=== PATIENT | female | born 1950 | race Caucasian/White ===

== ENCOUNTER 2018-01-09 16:25 | Inpatient (IN) | payer MEDICARE, MEDICAID ==
[~2018-01-09] VITALS: Ht 165.1 cm; Wt 79.5 kg
[~2018-01-09 16:25] MED LIST: ALB0.5UD NEB; ALBU18HF2 INH; AMIT-189 PO; AZIT250T PO; CITA20TA19 PO; CYCL-394 PO; FLO110IN IH; OLME20TA14 PO; OMEP40CA37 PO; OXYB5TAB PO
[2018-01-09] MEDS ORDERED: ipratropium/albuterol 3ml nebule NEB ONE (16:40)
[2018-01-09] MEDS ORDERED: methylPREDNISolone sod succ 125mg/2ml vial IV ONE (16:40)
[2018-01-09] MEDS ORDERED: albuterol 2.5 MG/3 ML nebule CONTNEB PRN (16:45)
[2018-01-09] MEDS ORDERED: magnesium 2GM in 50ml NS 50 ML IV ONE (16:50)
[2018-01-09 16:59] LABS: BASOPHILS # (AUTO) 0.1 X10'3 (0-0.2); BASOPHILS % (AUTO) 0.5 % (0-1); EOSINOPHILS # (AUTO) 0.2 X10'3 (0-0.9); EOSINOPHILS % (AUTO) 2.1 % (0-6); HEMATOCRIT 46.5 % (35.0-45.0); HEMOGLOBIN 15.6 g/dl (12.0-16.0); LYMPHOCYTES # (AUTO) 1.9 X10'3 (1.1-4.8); LYMPHOCYTES % (AUTO) 19.4 % (21-51); MEAN CORPUSCULAR HEMOGLOBIN 30.2 PG (27.0-31.0); MEAN CORPUSCULAR HGB CONC 33.6 % (33.0-36.5); MEAN CORPUSCULAR VOLUME 90.1 FL (78-98); MONOCYTES # (AUTO) 0.6 X10'3 (0-0.9); MONOCYTES % (AUTO) 6.5 % (2-12); NEUTROPHILS # (AUTO) 6.9 X10'3 (1.8-7.7); NEUTROPHILS % (AUTO) 71.5 % (42-75); PLATELET COUNT 217 X10'3 (140-440); RED BLOOD COUNT 5.16 X10'6 (4.20-5.60); RED CELL DISTRIBUTION WIDTH 14.3 % (11.5-14.5); WHITE BLOOD COUNT 9.6 X10'3 (4.5-11.0)
[2018-01-09 17:10] LABS: PARTIAL THROMBOPLASTIN TIME 25 SECONDS (22-32)
[2018-01-09 17:15] LABS: ALANINE AMINOTRANSFERASE 25 U/L (12-78); ALBUMIN 3.6 G/DL (3.4-5.0); ALKALINE PHOSPHATASE 61 IU/L (46-116); ANION GAP 8 (8-16); ASPARTATE AMINO TRANSFERASE 16 U/L (10-37); BILIRUBIN,TOTAL 0.5 MG/DL (0.1-1.0); BLOOD UREA NITROGEN 11 MG/DL (7-18); BUN/CREATININE RATIO 14.3 (6.6-38.0); CALCIUM 8.7 MG/DL (8.5-10.1); CHLORIDE 105 MMOL/L (99-107); CREATININE 0.77 MG/DL (0.40-0.90); GLUCOSE 101 MG/DL (70-104); POTASSIUM 3.8 MMOL/L (3.5-5.1); SODIUM 141 MMOL/L (135-145); TOTAL CARBON DIOXIDE 28.2 MMOL/L (24-32); TOTAL PROTEIN 7.2 G/DL (6.4-8.2); eGFR 75 ML/MIN
[2018-01-09] MEDS ORDERED: LORazepam 1 MG tablet PO ONE (17:50)
[2018-01-09] MEDS ORDERED: albuterol 2.5 MG/3 ML nebule CONTNEB ONE (18:05)
[2018-01-09] MEDS ORDERED: ondansetron/PF 4mg/2ml inj IV PRN (20:35)
[2018-01-09] MEDS ORDERED: potassium Cl 40MEQ/NS 500ml 500 ML IV PRN ×2 (20:35)
[2018-01-09] MEDS ORDERED: HYDROcodone/acetaminophen 5mg/325mg tablet PO PRN (20:35)
[2018-01-09] MEDS ORDERED: magnesium hydroxide 30ml (MOM) UD suspension PO PRN (20:35)
[2018-01-09] MEDS ORDERED: acetaminophen 325mg tablet PO PRN (20:35)
[2018-01-09] MEDS ORDERED: mag hydrox/Alum hydrox/simeth 30ml oral suspension PO PRN (20:35)
[2018-01-09] MEDS ORDERED: potassium Cl 20 mEq SR tablet PO PRN ×2 (20:35)
[2018-01-09] MEDS ORDERED: albuterol 2.5 MG/3 ML nebule NEB PRN (20:40)
[2018-01-09] MEDS: azithromycin 250mg tablet PO SCH (21:00)
[2018-01-09] MEDS ORDERED: budesonide 0.5mg/2ml UD nebule IH SCH (21:12)
[2018-01-09] MEDS: amitryptiline 50mg tablet PO SCH (21:30)
[2018-01-09] MEDS: ipratropium/albuterol 3ml nebule NEB SCH (23:00)
[2018-01-10] MEDS: methylPREDNISolone sod succ 125mg/2ml vial IV SCH ×4 (00:19→23:57)
[2018-01-10] MEDS: ipratropium/albuterol 3ml nebule NEB SCH ×5 (03:00→23:48)
[2018-01-10 06:40] LABS: BASOPHILS % (AUTO) 0 % (0-1); EOSINOPHILS % (AUTO) 0 % (0-6); HEMATOCRIT 46.8 % (35.0-45.0); HEMOGLOBIN 15.6 g/dl (12.0-16.0); LYMPHOCYTES # (AUTO) 0.8 X10'3 (1.1-4.8); LYMPHOCYTES % (AUTO) 10.3 % (21-51); MEAN CORPUSCULAR HEMOGLOBIN 30.6 PG (27.0-31.0); MEAN CORPUSCULAR HGB CONC 33.3 % (33.0-36.5); MEAN CORPUSCULAR VOLUME 91.9 FL (78-98); MEAN PLATELET VOLUME 9.3 FL (7.4-10.4); MONOCYTES % (AUTO) 0.4 % (2-12); NEUTROPHILS # (AUTO) 6.9 X10'3 (1.8-7.7); NEUTROPHILS % (AUTO) 89.3 % (42-75); PLATELET COUNT 204 X10'3 (140-440); RED CELL DISTRIBUTION WIDTH 14.2 % (11.5-14.5); WHITE BLOOD COUNT 7.7 X10'3 (4.5-11.0)
[2018-01-10 07:26] LABS: ALBUMIN 3.2 G/DL (3.4-5.0); ANION GAP 7 (8-16); BLOOD UREA NITROGEN 15 MG/DL (7-18); BUN/CREATININE RATIO 22.1 (6.6-38.0); CALCIUM 8.8 MG/DL (8.5-10.1); CHLORIDE 107 MMOL/L (99-107); CHOL/HDL RATIO 2.9 (0.00-4.99); CHOLESTEROL 173 MG/DL (0-200); CREATININE 0.68 MG/DL (0.40-0.90); GLUCOSE 145 MG/DL (70-104); HDL CHOLESTEROL 60 MG/DL (35-60); LDL CHOLESTEROL 100 MG/DL (50-100); MAGNESIUM 2.4 MG/DL (1.5-2.4); POTASSIUM 4.6 MMOL/L (3.5-5.1); SODIUM 141 MMOL/L (135-145); TOTAL CARBON DIOXIDE 27.1 MMOL/L (24-32); TRIGLYCERIDES 41 MG/DL (20-135); eGFR 86 ML/MIN
[2018-01-10] MEDS: pantoprazole 40mg Tablet.DR PO SCH ×2 (07:53→20:30)
[2018-01-10] MEDS: citalopram 20mg tablet PO SCH (07:53)
[2018-01-10] MEDS: oxybutynin 5mg tablet PO SCH ×2 (07:53→20:29)
[2018-01-10] MEDS: azithromycin 250mg tablet PO SCH (07:53)
[2018-01-10] MEDS: enoxaparin 40mg/0.4ml syringe SQ SCH (07:53)
[2018-01-10] MEDS: CefTRIAXone/D5W-Rocephin 1gm 50 ML IV SCH (07:54)
[2018-01-10] MEDS: K and/or MAG REPLACEMENT MC SCH (08:00)
[2018-01-10] MEDS: budesonide 0.5mg/2ml UD nebule IH SCH ×2 (09:09→20:17)
[2018-01-10 13:49] VITALS: BP 125/86
[2018-01-10 18:00] VITALS: BP 108/70
[2018-01-10] MEDS: amitryptiline 50mg tablet PO SCH (20:30)
[2018-01-10] MEDS: lactobacillus rhamnosus 10,000 MMU CELLS/CAPSULE PO SCH (20:30)
[2018-01-10 22:00] VITALS: BP 116/65
[2018-01-11] MEDS: ipratropium/albuterol 3ml nebule NEB SCH ×6 (02:56→22:47)
[2018-01-11 05:00] VITALS: BP 118/76
[2018-01-11 06:37] LABS: BASOPHILS % (AUTO) 0.2 % (0-1); EOSINOPHILS # (AUTO) 0.3 X10'3 (0-0.9); EOSINOPHILS % (AUTO) 1.7 % (0-6); HEMATOCRIT 44.2 % (35.0-45.0); HEMOGLOBIN 14.7 g/dl (12.0-16.0); LYMPHOCYTES # (AUTO) 0.7 X10'3 (1.1-4.8); LYMPHOCYTES % (AUTO) 4.2 % (21-51); MEAN CORPUSCULAR HEMOGLOBIN 30.6 PG (27.0-31.0); MEAN CORPUSCULAR HGB CONC 33.3 % (33.0-36.5); MEAN CORPUSCULAR VOLUME 91.8 FL (78-98); MEAN PLATELET VOLUME 9.3 FL (7.4-10.4); MONOCYTES # (AUTO) 0.2 X10'3 (0-0.9); NEUTROPHILS # (AUTO) 14.7 X10'3 (1.8-7.7); NEUTROPHILS % (AUTO) 92.9 % (42-75); PLATELET COUNT 199 X10'3 (140-440); RED BLOOD COUNT 4.81 X10'6 (4.20-5.60); WHITE BLOOD COUNT 15.8 X10'3 (4.5-11.0)
[2018-01-11 06:49] LABS: ALBUMIN 3.2 G/DL (3.4-5.0); ANION GAP 8 (8-16); BLOOD UREA NITROGEN 21 MG/DL (7-18); BUN/CREATININE RATIO 22.6 (6.6-38.0); CALCIUM 8.7 MG/DL (8.5-10.1); CHLORIDE 107 MMOL/L (99-107); CREATININE 0.93 MG/DL (0.40-0.90); GLUCOSE 151 MG/DL (70-104); MAGNESIUM 2.1 MG/DL (1.5-2.4); POTASSIUM 4.8 MMOL/L (3.5-5.1); SODIUM 143 MMOL/L (135-145); eGFR 60 ML/MIN
[2018-01-11] MEDS: budesonide 0.5mg/2ml UD nebule IH SCH ×2 (07:49→22:47)
[2018-01-11] MEDS: CefTRIAXone/D5W-Rocephin 1gm 50 ML IV SCH (07:56)
[2018-01-11] MEDS: methylPREDNISolone sod succ 125mg/2ml vial IV SCH ×2 (07:56→20:26)
[2018-01-11] MEDS: lactobacillus rhamnosus 10,000 MMU CELLS/CAPSULE PO SCH ×2 (07:57→20:26)
[2018-01-11] MEDS: enoxaparin 40mg/0.4ml syringe SQ SCH (07:57)
[2018-01-11] MEDS: pantoprazole 40mg Tablet.DR PO SCH ×2 (07:57→20:26)
[2018-01-11] MEDS: azithromycin 250mg tablet PO SCH (07:57)
[2018-01-11] MEDS: citalopram 20mg tablet PO SCH (07:57)
[2018-01-11] MEDS: oxybutynin 5mg tablet PO SCH ×2 (07:58→20:26)
[2018-01-11] MEDS: K and/or MAG REPLACEMENT MC SCH (08:13)
[2018-01-11 10:00] VITALS: BP 101/59
[2018-01-11 18:00] VITALS: BP 102/63
[2018-01-11] MEDS: amitryptiline 50mg tablet PO SCH (20:27)
[2018-01-11 22:00] VITALS: BP 118/71
[2018-01-12] MEDS: ipratropium/albuterol 3ml nebule NEB SCH ×2 (02:40→07:57)
[2018-01-12 05:05] LABS: BASOPHILS % (AUTO) 0.1 % (0-1); EOSINOPHILS # (AUTO) 0.2 X10'3 (0-0.9); HEMOGLOBIN 14.4 g/dl (12.0-16.0); LYMPHOCYTES # (AUTO) 0.8 X10'3 (1.1-4.8); LYMPHOCYTES % (AUTO) 5.3 % (21-51); MEAN CORPUSCULAR HEMOGLOBIN 30.6 PG (27.0-31.0); MEAN CORPUSCULAR HGB CONC 33.6 % (33.0-36.5); MEAN CORPUSCULAR VOLUME 91.3 FL (78-98); MONOCYTES # (AUTO) 0.4 X10'3 (0-0.9); MONOCYTES % (AUTO) 2.5 % (2-12); NEUTROPHILS # (AUTO) 14.1 X10'3 (1.8-7.7); NEUTROPHILS % (AUTO) 91.1 % (42-75); PLATELET COUNT 193 X10'3 (140-440); RED BLOOD COUNT 4.71 X10'6 (4.20-5.60); RED CELL DISTRIBUTION WIDTH 14.4 % (11.5-14.5); WHITE BLOOD COUNT 15.5 X10'3 (4.5-11.0)
[2018-01-12 05:40] LABS: ALBUMIN 3.2 G/DL (3.4-5.0); ANION GAP 8 (8-16); BLOOD UREA NITROGEN 22 MG/DL (7-18); CALCIUM 8.9 MG/DL (8.5-10.1); CHLORIDE 106 MMOL/L (99-107); CREATININE 0.88 MG/DL (0.40-0.90); GLUCOSE 147 MG/DL (70-104); POTASSIUM 4.7 MMOL/L (3.5-5.1); SODIUM 143 MMOL/L (135-145); TOTAL CARBON DIOXIDE 28.9 MMOL/L (24-32); eGFR 64 ML/MIN
[2018-01-12 06:00] VITALS: BP 106/68
[2018-01-12] MEDS: lactobacillus rhamnosus 10,000 MMU CELLS/CAPSULE PO SCH (07:31)
[2018-01-12] MEDS: azithromycin 250mg tablet PO SCH (07:31)
[2018-01-12] MEDS: pantoprazole 40mg Tablet.DR PO SCH (07:31)
[2018-01-12] MEDS: oxybutynin 5mg tablet PO SCH (07:32)
[2018-01-12] MEDS: methylPREDNISolone sod succ 125mg/2ml vial IV SCH (07:32)
[2018-01-12] MEDS: citalopram 20mg tablet PO SCH (07:32)
[2018-01-12] MEDS: CefTRIAXone/D5W-Rocephin 1gm 50 ML IV SCH (07:33)
[2018-01-12] MEDS: enoxaparin 40mg/0.4ml syringe SQ SCH (07:33)
[2018-01-12] MEDS ORDERED: PRED20TA PO (07:41)
[2018-01-12] MEDS: K and/or MAG REPLACEMENT MC SCH (07:45)
[2018-01-12] MEDS: budesonide 0.5mg/2ml UD nebule IH SCH (07:58)
[2018-01-12] MEDS ORDERED: LEVO500T89 PO (08:17)
== END 2018-01-12 09:59 | disposition home or self-care (01) | DRG 189 ==
LOC: ER 16:25 → ED HOLD 20:35 → EDBEDREQ 21:23 → ORTHO 4S 01-10 13:15
PROVIDERS: ADMIT Family Medicine; ATTEND Internal Medicine
DX: J96.21 Acute and chronic respiratory failure with hypoxia (principal); J44.1 Chronic obstructive pulmonary disease with (acute) exacerbation; D72.829 Elevated white blood cell count, unspecified; K21.9 Gastro-esophageal reflux disease without esophagitis; I10 Essential (primary) hypertension; F32.9 Major depressive disorder, single episode, unspecified; F41.9 Anxiety disorder, unspecified; G89.29 Other chronic pain; M54.9 Dorsalgia, unspecified; T38.0X5A Adverse effect of glucocorticoids and synthetic analogues, initial encounter; F17.210 Nicotine dependence, cigarettes, uncomplicated; Z90.49 Acquired absence of other specified parts of digestive tract; Z98.51 Tubal ligation status; Z79.899 Other long term (current) drug therapy; Z79.01 Long term (current) use of anticoagulants; Z88.6 Allergy status to analgesic agent; Z88.1 Allergy status to other antibiotic agents; Z88.8 Allergy status to other drugs, medicaments and biological substances; Z87.442 Personal history of urinary calculi; Z83.3 Family history of diabetes mellitus; Y92.89 Other specified places as the place of occurrence of the external cause
CPT/HCPCS: 36415; 71045; 80048; 80053; 80061; 83036; 83735; 83880; 84484; 85025; 85610; 85730; 87070; 87502; 87503; 93005; 94640; 94760; 96365; 96375; 99285; J0696; J1650; J2930; J3475; J7626

== ENCOUNTER 2018-11-22 11:49 | Inpatient (IN) | payer MEDICARE, MEDICAID | END 2018-11-25 14:50 | disposition home or self-care (01) | LOC: ER 11:49 → ED HOLD 16:13 → PCU 3S 19:19 | DX: A41.9 Sepsis, unspecified organism (principal); J18.9 Pneumonia, unspecified organism; J96.21 Acute and chronic respiratory failure with hypoxia; J44.1 Chronic obstructive pulmonary disease with (acute) exacerbation ==

== ENCOUNTER 2019-01-16 23:31 | Inpatient (IN) | payer MEDICARE, MEDICAID ==
[~2019-01-16] VITALS: Ht 165.1 cm; Wt 80.0 kg
[~2019-01-16 23:31] MED LIST changes: -AZIT250T PO; -CYCL-394 PO; -FLO110IN IH; +FURO-150 PO; +GUAI600T45 PO; -OLME20TA14 PO; +OMEP20CA10 PO; -OMEP40CA37 PO
[2019-01-16] MEDS ORDERED: methylPREDNISolone sod succ 125mg/2ml vial IV ONE (23:35)
[2019-01-16] MEDS ORDERED: magnesium 2GM in 50ml NS 50 ML IV ONE (23:35)
[2019-01-16] MEDS ORDERED: albuterol 2.5 MG/3 ML nebule CONTNEB PRN (23:40)
[2019-01-16] MEDS ORDERED: azithromycin/NS 500mg/250ml 250 ML IV ONE (23:45)
[2019-01-16] MEDS ORDERED: CefTRIAXone/D5W-Rocephin 1gm 50 ML IV ONE (23:45)
[2019-01-16 23:51] LABS: ABG BASE EXCESS 5.1 mmol/L (-2.0-3.0); ABG OXYGEN SATURATION 98.6 % (95-98); ABG PCO2 (T) 58.7 mmHg (32.0-45.0); ABG PH (T) 7.357 (7.350-7.450); ABG PO2 (T) 153.3 mmHg (83-108); ALLEN'S TEST Positive; FCOHb 0.7 % (0.5-1.5); FMetHb 0.1 % (0.3-1.12); FO2Hb 97.8 % (94-100); PATIENT TEMPERATURE 37.6; RESPIRATORY RATE 16 b/min; RESPIRATORY RATE (OBSERVED) 36 b/min; TOTAL HEMOGLOBIN 13.4 G/dl (12.0-16.0)
[2019-01-17] LABS: BASOPHILS # (AUTO) 0.1 X10'3 (0-0.2); BASOPHILS % (AUTO) 0.5 % (0-1); EOSINOPHILS # (AUTO) 0.2 X10'3 (0-0.9); EOSINOPHILS % (AUTO) 1.1 % (0-6); HEMOGLOBIN 12.7 g/dl (12.0-16.0); LYMPHOCYTES # (AUTO) 1.1 X10'3 (1.1-4.8); LYMPHOCYTES % (AUTO) 6.7 % (21-51); MEAN CORPUSCULAR HEMOGLOBIN 29.9 PG (27.0-31.0); MEAN CORPUSCULAR HGB CONC 32.6 g/dL (33.0-36.5); MEAN CORPUSCULAR VOLUME 91.9 FL (78-98); MEAN PLATELET VOLUME 8.6 FL (7.4-10.4); MONOCYTES % (AUTO) 6.1 % (2-12); NEUTROPHILS # (AUTO) 14.5 X10'3 (1.8-7.7); NEUTROPHILS % (AUTO) 85.6 % (42-75); PLATELET COUNT 323 X10'3 (140-440); RED BLOOD COUNT 4.24 X10'6 (4.20-5.60); RED CELL DISTRIBUTION WIDTH 14.8 % (11.5-14.5); WHITE BLOOD COUNT 16.9 X10'3 (4.5-11.0)
[2019-01-17 00:13] LABS: ALANINE AMINOTRANSFERASE 24 U/L (12-78); ALBUMIN 2.4 G/DL (3.4-5.0); ALBUMIN/GLOBULIN RATIO 0.6 (1.1-1.5); ALKALINE PHOSPHATASE 65 IU/L (46-116); ANION GAP 3 (8-16); ASPARTATE AMINO TRANSFERASE 14 U/L (10-37); BILIRUBIN,TOTAL 0.3 MG/DL (0.1-1.0); BLOOD UREA NITROGEN 10 MG/DL (7-18); BUN/CREATININE RATIO 13.2 (6.6-38.0); CALCIUM 8.8 MG/DL (8.5-10.1); CHLORIDE 102 MMOL/L (99-107); CREATININE 0.76 MG/DL (0.40-0.90); GLUCOSE 142 MG/DL (70-104); POTASSIUM 3.5 MMOL/L (3.5-5.1); SODIUM 140 MMOL/L (135-145); TOTAL CARBON DIOXIDE 35.1 MMOL/L (24-32); TOTAL PROTEIN 6.6 G/DL (6.4-8.2); eGFR 76 ML/MIN
[2019-01-17 00:21] LABS: TROPONIN I < 0.04 NG/ML (0.0-0.05)
[2019-01-17 00:22] LABS: LARGE PLATELETS FEW; PLATELET ESTIMATE NORMAL; TOTAL CELLS COUNTED 100
[2019-01-17 00:53] LABS: INR 1.1 INR; PARTIAL THROMBOPLASTIN TIME 27 SECONDS (22-32); PROTHROMBIN TIME 10.7 SECONDS (9.0-12.0)
--- NOTE | 2019-01-17 00:55 | NUR ---
DAUGHTER CALLED WITH [facility] - MED REC COMPLETED ON COMPUTER
--- NOTE | 2019-01-17 01:17 | NUR ---
pt markedly improved. She is requesting to have bipap removed. states it is hot and feels like it is suffocating her. turned the warmer off and told pt that should help. MD at bedside and stated he would like a repeat ABG before doing a trial off the bipap. pt agreeable to plan of care.
[2019-01-17 03:01] LABS: ABG BASE EXCESS 8.6 mmol/L (-2.0-3.0); ABG HCO3 36.1 mmol/L (22.0-26.0); ABG OXYGEN SATURATION 96.1 % (95-98); ABG PCO2 (T) 65.3 mmHg (32.0-45.0); ABG PH (T) 7.363 (7.350-7.450); ABG PO2 (T) 88.2 mmHg (83-108); ALLEN'S TEST Positive; FCOHb 0.8 % (0.5-1.5); FMetHb 0.1 % (0.3-1.12); FO2Hb 95.2 % (94-100); MINUTE VOLUME 16 L/min; PATIENT TEMPERATURE 37.6; RESPIRATORY RATE 16 b/min; RESPIRATORY RATE (OBSERVED) 32 b/min; TIDAL VOLUME 546 mL; TOTAL HEMOGLOBIN 13.5 G/dl (12.0-16.0)
[2019-01-17] MEDS ORDERED: piperacillin/tazo 3.375gm/50ml 50 ML IV SCH (03:50)
[2019-01-17] MEDS ORDERED: SODIUM CHLORIDE IV ONE (03:55)
[2019-01-17] MEDS ORDERED: VANCOMYCIN IV ONE (03:55)
--- NOTE | 2019-01-17 04:18 | NUR ---
PT REQUESTING UPDATE - SHE IS ADVISED OF PLAN OF CARE AND IN AGREEMENT WITH STAYING OVER NIGHT/BEING ADMITTED
[2019-01-17 04:51] LABS: ABG BASE EXCESS 8.8 mmol/L (-2.0-3.0); ABG HCO3 36.2 mmol/L (22.0-26.0); ABG PCO2 (T) 65.3 mmHg (32.0-45.0); ABG PH (T) 7.366 (7.350-7.450); ABG PO2 (T) 97.4 mmHg (83-108); ALLEN'S TEST Positive; FMetHb 0.2 % (0.3-1.12); FO2Hb 95.8 % (94-100); MINUTE VOLUME 18 L/min; PATIENT TEMPERATURE 37.9; RESPIRATORY RATE 20 b/min; RESPIRATORY RATE (OBSERVED) 26 b/min; TIDAL VOLUME 609 mL; TOTAL HEMOGLOBIN 13.5 G/dl (12.0-16.0)
--- NOTE | 2019-01-17 05:15 | NUR ---
PT HAD ANOTHER ABG WHICH REVEALED NO SIGNIFICANT CHANGE FROM PREVIOUS - PER MD AND RT PT HAS BEEN TAKEN OFF BIPAP - SHE IS CURRENTLY ON NC @3LPM
--- NOTE | 2019-01-17 05:59 | NUR ---
pt reports she is having trouble breathing again. her lungs are diminished, coarse and expiratory wheezes are present. she is placed back on bipap and MD notified. He is going to order another breathing treatment.
[2019-01-17] MEDS ORDERED: ipratropium/albuterol 3ml nebule NEB ONE (06:00)
[2019-01-17] MEDS ORDERED: magnesium 4gm in 100ml NS 100 ML IV PRN (08:20)
[2019-01-17] MEDS ORDERED: magnesium 2GM in 50ml NS 50 ML IV PRN (08:20)
[2019-01-17] MEDS ORDERED: potassium Cl 40MEQ/NS 500ml 500 ML IV PRN ×2 (08:20)
[2019-01-17] MEDS ORDERED: potassium Cl 20 mEq SR tablet PO PRN ×2 (08:20)
[2019-01-17] MEDS ORDERED: magnesium Cl slow-release 64mg tablet PO PRN (08:20)
[2019-01-17] MEDS ORDERED: ipratropium/albuterol 3ml nebule NEB PRN (08:20)
[2019-01-17] MEDS: ipratropium/albuterol 3ml nebule NEB SCH ×3 (09:00→21:23)
--- NOTE | 2019-01-17 10:38 | NUR ---
Spoke with hospitalist regarding pt's status. Pt condition improving, O2 sat 96% on BiPAP at 30% FiO2; states she is feeling better with improving SOB. Dr. Castillo requests trial of BiPAP with NC 3L. No ABG at this time; only wants additional ABG if pt condition worsens.
--- NOTE | 2019-01-17 10:40 | NUR ---
BiPAP removed, will continue to reassess patient.
[2019-01-17] MEDS: piperacillin/tazo 3.375gm/50ml 50 ML IV SCH ×2 (12:26→20:16)
--- NOTE | 2019-01-17 13:28 | NUR ---
patient eating lunch,no reported discomfort.
[2019-01-17 15:00] VITALS: BP 125/70
[2019-01-17 15:15] VITALS: BP 133/81
[2019-01-17 18:18] VITALS: BP 120/66
--- NOTE | 2019-01-17 18:29 | NUR ---
Problems reprioritized. Patient report given, questions answered & plan of care reviewed with SELENE Muniz.
--- NOTE | 2019-01-17 18:29 | NUR ---
Patient in room PCU 3012. I have received report from Deya MORTON and had the opportunity to ask questions and assume patient care. no iv, IV infiltrated. 3L NC, call light in reach, skin check done, no signs of distress. freq used belongings within reach. will continue to monitor
[2019-01-17] MEDS: citalopram 20mg tablet PO SCH (20:15)
[2019-01-17] MEDS: oxybutynin 5mg tablet PO SCH (20:16)
[2019-01-17] MEDS: pantoprazole 40mg Tablet.DR PO SCH (20:16)
[2019-01-17] MEDS: lactobacillus rhamnosus 10,000 MMU CELLS/CAPSULE PO SCH (20:16)
[2019-01-17 22:00] VITALS: BP 124/67
[2019-01-18 02:00] VITALS: BP 116/51
[2019-01-18] MEDS: ipratropium/albuterol 3ml nebule NEB SCH ×4 (02:29→20:16)
[2019-01-18] MEDS: piperacillin/tazo 3.375gm/50ml 50 ML IV SCH ×3 (04:07→20:22)
[2019-01-18 05:26] LABS: ALBUMIN 2.1 G/DL (3.4-5.0); ANION GAP 4 (8-16); BLOOD UREA NITROGEN 19 MG/DL (7-18); BUN/CREATININE RATIO 25.3 (6.6-38.0); CALCIUM 8.7 MG/DL (8.5-10.1); CHLORIDE 105 MMOL/L (99-107); CREATININE 0.75 MG/DL (0.40-0.90); GLUCOSE 100 MG/DL (70-104); MAGNESIUM 2.3 MG/DL (1.5-2.4); POTASSIUM 3.7 MMOL/L (3.5-5.1); SODIUM 144 MMOL/L (135-145); TOTAL CARBON DIOXIDE 35.5 MMOL/L (24-32); eGFR 77 ML/MIN
[2019-01-18 05:39] LABS: BASOPHILS % (AUTO) 0.3 % (0-1); EOSINOPHILS # (AUTO) 0.1 X10'3 (0-0.9); EOSINOPHILS % (AUTO) 0.4 % (0-6); HEMATOCRIT 36.4 % (35.0-45.0); HEMOGLOBIN 11.7 g/dl (12.0-16.0); LYMPHOCYTES # (AUTO) 1.8 X10'3 (1.1-4.8); LYMPHOCYTES % (AUTO) 12.4 % (21-51); MEAN CORPUSCULAR HEMOGLOBIN 29.6 PG (27.0-31.0); MEAN CORPUSCULAR HGB CONC 32.3 g/dL (33.0-36.5); MEAN CORPUSCULAR VOLUME 91.7 FL (78-98); MEAN PLATELET VOLUME 8.6 FL (7.4-10.4); MONOCYTES # (AUTO) 1.4 X10'3 (0-0.9); MONOCYTES % (AUTO) 9.1 % (2-12); NEUTROPHILS # (AUTO) 11.6 X10'3 (1.8-7.7); NEUTROPHILS % (AUTO) 77.8 % (42-75); PLATELET COUNT 317 X10'3 (140-440); RED BLOOD COUNT 3.97 X10'6 (4.20-5.60); RED CELL DISTRIBUTION WIDTH 15.2 % (11.5-14.5); WHITE BLOOD COUNT 14.9 X10'3 (4.5-11.0)
[2019-01-18 06:00] VITALS: BP 117/62
--- NOTE | 2019-01-18 06:25 | NUR ---
Patient in room PCU 3012. I have received report from SELENE Muniz and had the opportunity to ask questions and assume patient care. Pt resting, no distress, states no needs, bed is low/locked/SRx2, call light in reach.
--- NOTE | 2019-01-18 06:29 | NUR ---
Problems reprioritized. Patient report given, questions answered & plan of care reviewed with Deya MORTON. no signs of distress. iv intact, freq used belongings within reach, call light in reach.
[2019-01-18] MEDS: K and/or MAG REPLACEMENT MC SCH (06:46)
[2019-01-18] MEDS: CefTRIAXone/D5W-Rocephin 1gm 50 ML IV SCH ×2 (08:00→10:15)
[2019-01-18] MEDS: azithromycin/NS 500mg/250ml 250 ML IV SCH ×3 (08:00→10:15)
[2019-01-18] MEDS: pantoprazole 40mg Tablet.DR PO SCH ×2 (08:04→20:22)
[2019-01-18] MEDS: enoxaparin 40mg/0.4ml syringe SUBCUT SCH (08:04)
[2019-01-18] MEDS: oxybutynin 5mg tablet PO SCH ×2 (08:04→20:22)
[2019-01-18] MEDS: lactobacillus rhamnosus 10,000 MMU CELLS/CAPSULE PO SCH ×2 (08:05→20:22)
[2019-01-18 11:00] VITALS: BP 126/69
--- NOTE | 2019-01-18 11:01 | NUR ---
PAGER ID: [phone] MESSAGE: [id number] Nikia Gee C/o nausea, no nausea meds ordered. Please advise. SELENE Falk 1965
[2019-01-18] MEDS ORDERED: ondansetron/PF 4mg/2ml inj IV PRN (11:10)
[2019-01-18] MEDS: nystatin 15 GM powder TP SCH ×2 (13:00→20:22)
[2019-01-18 15:00] VITALS: BP 112/75
--- NOTE | 2019-01-18 17:01 | NUR ---
To patient's room to enquire about pain level, patient sleeping on right side, RR WNL, no signs of distress. Will continue to monitor.
--- NOTE | 2019-01-18 17:33 | NUR ---
Malnutrition consult: Pt has no wt loss hx past year prior admit, no significant weakness, edema, and PO 75% avg regular diet meeting needs. Does not qualify for malnutrition at this time. Addendum: 01/18/19 at [address] Amended: Links added.
[2019-01-18 18:00] VITALS: BP 107/71
--- NOTE | 2019-01-18 18:05 | NUR ---
Problems reprioritized. Patient report given, questions answered & plan of care reviewed with SELENE Mccall.
--- NOTE | 2019-01-18 18:34 | NUR ---
PATIENT REPORT RECEIVED FROM YNES MORTON.
[2019-01-18] MEDS: acetaminophen 325mg tablet PO PRN (19:47)
[2019-01-18] MEDS: citalopram 20mg tablet PO SCH (20:22)
[2019-01-18 22:00] VITALS: BP 108/63
[2019-01-19 02:00] VITALS: BP 111/71
[2019-01-19] MEDS: ipratropium/albuterol 3ml nebule NEB SCH ×2 (02:52→09:58)
[2019-01-19] MEDS: acetaminophen 325mg tablet PO PRN (03:09)
[2019-01-19] MEDS: piperacillin/tazo 3.375gm/50ml 50 ML IV SCH (04:40)
[2019-01-19 05:41] LABS: BASOPHILS # (AUTO) 0.1 X10'3 (0-0.2); BASOPHILS % (AUTO) 1.2 % (0-1); EOSINOPHILS # (AUTO) 0.2 X10'3 (0-0.9); EOSINOPHILS % (AUTO) 2.8 % (0-6); HEMATOCRIT 34.9 % (35.0-45.0); HEMOGLOBIN 11.2 g/dl (12.0-16.0); LYMPHOCYTES # (AUTO) 1.9 X10'3 (1.1-4.8); LYMPHOCYTES % (AUTO) 24.6 % (21-51); MEAN CORPUSCULAR HEMOGLOBIN 29.7 PG (27.0-31.0); MEAN CORPUSCULAR VOLUME 92.8 FL (78-98); MEAN PLATELET VOLUME 8.6 FL (7.4-10.4); MONOCYTES # (AUTO) 0.9 X10'3 (0-0.9); MONOCYTES % (AUTO) 11.3 % (2-12); NEUTROPHILS # (AUTO) 4.7 X10'3 (1.8-7.7); NEUTROPHILS % (AUTO) 60.1 % (42-75); PLATELET COUNT 294 X10'3 (140-440); RED BLOOD COUNT 3.77 X10'6 (4.20-5.60); WHITE BLOOD COUNT 7.8 X10'3 (4.5-11.0)
[2019-01-19 05:48] LABS: ALBUMIN 2.1 G/DL (3.4-5.0); ANION GAP 4 (8-16); BLOOD UREA NITROGEN 16 MG/DL (7-18); BUN/CREATININE RATIO 22.5 (6.6-38.0); CALCIUM 8.3 MG/DL (8.5-10.1); CHLORIDE 105 MMOL/L (99-107); CREATININE 0.71 MG/DL (0.40-0.90); GLUCOSE 92 MG/DL (70-104); MAGNESIUM 2.2 MG/DL (1.5-2.4); POTASSIUM 3.8 MMOL/L (3.5-5.1); SODIUM 146 MMOL/L (135-145); eGFR 82 ML/MIN
--- NOTE | 2019-01-19 06:35 | NUR ---
Patient in room PCU 3012. I have received report from SELENE Mccall and had the opportunity to ask questions and assume patient care.
--- NOTE | 2019-01-19 06:35 | NUR ---
PATIENT REPORT GIVEN TO YOLIE MORTON.
[2019-01-19 07:00] VITALS: BP 105/62
[2019-01-19] MEDS: lactobacillus rhamnosus 10,000 MMU CELLS/CAPSULE PO SCH (07:24)
[2019-01-19] MEDS: oxybutynin 5mg tablet PO SCH (07:24)
[2019-01-19] MEDS: pantoprazole 40mg Tablet.DR PO SCH (07:24)
[2019-01-19] MEDS: enoxaparin 40mg/0.4ml syringe SUBCUT SCH (07:25)
[2019-01-19] MEDS: nystatin 15 GM powder TP SCH (07:26)
[2019-01-19] MEDS: K and/or MAG REPLACEMENT MC SCH (08:00)
[2019-01-19] MEDS: CefTRIAXone/D5W-Rocephin 1gm 50 ML IV SCH (08:36)
--- NOTE | 2019-01-19 08:54 | NUR ---
Paged Dr. Castillo re pt's request for MOM. PAGER ID: [phone] MESSAGE: Pt Petra Gee in [id number] requesting MOM. Last BM 01/15. Thanks! Valerie MORTON [phone]
[2019-01-19] MEDS ORDERED: magnesium hydroxide 30ml (MOM) UD suspension PO ONE (09:00)
[2019-01-19] MEDS ORDERED: AMOX-422 PO (10:03)
[2019-01-19] MEDS ORDERED: PRED20TA PO (10:08)
[2019-01-19] MEDS: azithromycin/NS 500mg/250ml 250 ML IV SCH (10:15)
[2019-01-19 11:00] VITALS: BP 96/56
--- NOTE | 2019-01-19 12:50 | NUR ---
Discharge information, including medications, S&S worsening condition, f/u appointments reviewed with pt. Pt had the opportunity to ask questions. IV removed, cannula intact. All pt belongings gathered up and sent with pt. ID bands removed. 2 new prescriptions called in to [facility] in [place]. Pt wheeled down to lobby and ambulated independently in to private vehicle without difficulty.
== END 2019-01-19 12:50 | disposition home or self-care (01) | DRG 189 ==
LOC: ER 23:31 → ED HOLD 01-17 15:05 → PCU 3S 01-17 15:27
PROVIDERS: ADMIT Internal Medicine; ATTEND Internal Medicine
DX: J96.20 Acute and chronic respiratory failure, unspecified whether with hypoxia or hypercapnia (principal); J44.1 Chronic obstructive pulmonary disease with (acute) exacerbation
CPT/HCPCS: 36415; 36600; 71045; 80048; 80053; 82803; 83605; 83735; 83880; 84484; 85018; 85025; 85610; 85730; 87040; 87070; 93005; 94640; 94660; 94760; 96365; 96368; 96375; 99285; G0378; J0456; J0696; J1650; J2405; J2543; J2930; J3370; J3475

== ENCOUNTER 2019-08-17 01:50 | Inpatient (IN) | payer MEDICARE, MEDICAID ==
[~2019-08-17] VITALS: Ht 167.6 cm; Wt 84.5 kg
[~2019-08-17 01:50] MED LIST changes: -AMIT-189 PO; -FURO-150 PO; -GUAI600T45 PO; -OMEP20CA10 PO; +OMEP20CA11 PO; -OXYB5TAB PO; +OXYB5TAB4 PO; +PRED20TA PO
[2019-08-17] MEDS ORDERED: magnesium 2GM in 50ml NS 50 ML IV ONE (01:55)
[2019-08-17] MEDS ORDERED: ipratropium/albuterol 3ml nebule NEB ONE (01:55)
[2019-08-17] MEDS ORDERED: methylPREDNISolone sod succ 125mg/2ml vial IV ONE (01:55)
[2019-08-17] MEDS ORDERED: ipratropium 0.5 MG/2.5ML nebule IH ONE (03:35)
[2019-08-17] MEDS ORDERED: albuterol 2.5 MG/3 ML nebule CONTNEB PRN (03:35)
[2019-08-17 03:36] LABS: BASOPHILS # (AUTO) 0.1 X10'3 (0-0.2); BASOPHILS % (AUTO) 0.5 % (0-1); EOSINOPHILS # (AUTO) 0.1 X10'3 (0-0.9); LYMPHOCYTES # (AUTO) 1.5 X10'3 (1.1-4.8); MEAN CORPUSCULAR VOLUME 89.9 FL (78-98); MONOCYTES # (AUTO) 1.1 X10'3 (0-0.9); PLATELET COUNT 213 X10'3 (140-440)
[2019-08-17 03:37] LABS: EOSINOPHILS % (AUTO) 0.8 % (0-6); HEMATOCRIT 43.2 % (35.0-45.0); HEMOGLOBIN 14.2 g/dl (12.0-16.0); LYMPHOCYTES % (AUTO) 10.7 % (21-51); MEAN CORPUSCULAR HEMOGLOBIN 29.5 PG (27.0-31.0); MEAN CORPUSCULAR HGB CONC 32.9 g/dL (33.0-36.5); MEAN PLATELET VOLUME 9.5 FL (7.4-10.4); MONOCYTES % (AUTO) 7.8 % (2-12); NEUTROPHILS # (AUTO) 11.1 X10'3 (1.8-7.7); NEUTROPHILS % (AUTO) 80.2 % (42-75); RED BLOOD COUNT 4.81 X10'6 (4.20-5.60); RED CELL DISTRIBUTION WIDTH 14.8 % (11.5-14.5); WHITE BLOOD COUNT 13.9 X10'3 (4.5-11.0)
[2019-08-17] MEDS ORDERED: albuterol 2.5 MG/3 ML nebule ONE (03:40)
[2019-08-17 03:41] LABS: ALANINE AMINOTRANSFERASE 18 U/L (12-78); ALBUMIN 3.4 G/DL (3.4-5.0); ALBUMIN/GLOBULIN RATIO 0.8 (1.1-1.5); ALKALINE PHOSPHATASE 86 IU/L (46-116); ANION GAP 8 (8-16); ASPARTATE AMINO TRANSFERASE 19 U/L (10-37); BILIRUBIN,TOTAL 0.7 MG/DL (0.1-1.0); BLOOD UREA NITROGEN 13 MG/DL (7-18); BUN/CREATININE RATIO 16.5 (6.6-38.0); CALCIUM 8.9 MG/DL (8.5-10.1); CHLORIDE 103 MMOL/L (99-107); CREATININE 0.79 MG/DL (0.40-0.90); GLUCOSE 143 MG/DL (70-104); SODIUM 139 MMOL/L (135-145); TOTAL CARBON DIOXIDE 28.3 MMOL/L (24-32); TOTAL PROTEIN 7.8 G/DL (6.4-8.2); eGFR 72 ML/MIN
[2019-08-17 03:43] LABS: POTASSIUM 4.3 MMOL/L (3.5-5.1)
[2019-08-17] MEDS ORDERED: azithromycin/NS 500mg/250ml 250 ML IV ONE (03:45)
[2019-08-17] MEDS ORDERED: CefTRIAXone 2gm/D5W 50ml 50 ML IV ONE (03:45)
[2019-08-17 04:01] LABS: ABG BASE EXCESS 3.1 mmol/L (-2.0-3.0); ABG HCO3 29.6 mmol/L (22.0-26.0); ABG OXYGEN SATURATION 99.1 % (95-98); ABG PCO2 (T) 52.9 mmHg (35.0-45.0); ABG PH (T) 7.366 (7.350-7.450); ABG PO2 (T) 190.5 mmHg (83-108); ALLEN'S TEST Positive; FCOHb 0.8 % (0.5-1.5); FLOW 8 L/min; FMetHb 0.3 % (0.3-1.12); RESPIRATORY RATE (OBSERVED) 24 b/min; TOTAL HEMOGLOBIN 14.4 G/dl (12.0-16.0)
[2019-08-17] MEDS ORDERED: acetaminophen 325mg tablet PO ONE (04:05)
[2019-08-17] MEDS ORDERED: ondansetron/PF 4mg/2ml inj IV PRN (05:55)
[2019-08-17] MEDS ORDERED: magnesium 4gm in 100ml NS 100 ML IV PRN (05:55)
[2019-08-17] MEDS ORDERED: acetaminophen 325mg tablet PO PRN (05:55)
[2019-08-17] MEDS ORDERED: magnesium 2GM in 50ml NS 50 ML IV PRN (05:55)
[2019-08-17] MEDS ORDERED: ipratropium/albuterol 3ml nebule NEB PRN (05:55)
[2019-08-17] MEDS ORDERED: potassium CL 10mEq/100ml bag 100 ML IV PRN ×2 (05:55)
[2019-08-17] MEDS ORDERED: potassium Cl 20 mEq SR tablet PO PRN ×2 (05:55)
[2019-08-17] MEDS ORDERED: magnesium Cl slow-release 64mg tablet PO PRN (05:55)
[2019-08-17] MEDS ORDERED: CITA40TA17 PO (06:30)
[2019-08-17] MEDS ORDERED: TIOT4MIS2 INH (06:30)
[2019-08-17] MEDS ORDERED: AMIT-189 PO (06:32)
--- NOTE | 2019-08-17 06:56 | NUR ---
Paged Dr. Castillo regarding need to address med rec.
[2019-08-17] MEDS ORDERED: azithromycin/NS 500mg/250ml 250 ML IV SCH (08:00)
[2019-08-17] MEDS ORDERED: CefTRIAXone/D5W-Rocephin 1gm 50 ML IV SCH (08:00)
[2019-08-17] MEDS: K and/or MAG REPLACEMENT MC SCH (08:00)
[2019-08-17] MEDS ORDERED: methylPREDNISolone sod succ/PF 40mg inj. IV SCH (08:00)
--- NOTE | 2019-08-17 08:55 | NUR ---
RECEIVED REPORT FROM SELENE BRYAN. AWAITING PATIENT ARRIVAL TO ROOM 357B TO ASSUME CARE.
--- NOTE | 2019-08-17 09:17 | NUR ---
RECEIVED PATIENT TO ROOM 357B [facility]IA [facility] ACCOMPANIED BY [facility] STAFF. PATIENT ALERT AND ORIENTED. PATIENT ABLE TO TRANSFER TO BED FROM [facility] HAS SOB WITH EXERTION. ORIENTED PATIENT TO ROOM AND CALL LIGHT. CALL LIGHT PLACED WITHIN PATIENT'S REACH. BED IS LOW AND LOCKED.
[2019-08-17 09:20] VITALS: BP 145/80
[2019-08-17] MEDS ORDERED: FLU VACC QS2019-20 36MOS UP/PF 60 MCG/0.5 ML SYRINGE IMVAC ONE (10:00)
--- NOTE | 2019-08-17 11:45 | NUR ---
Notified by Servando Tirado RN that she received call from tele that ptient's HR as in the "130's and she was getting up to use the bathroom." Dr. Ramires was notified at went to bedside to see patient and stated, "I will take a look at her meds." No new orders at this time.
[2019-08-17 12:11] VITALS: BP 123/78
[2019-08-17] MEDS: ipratropium/albuterol 3ml nebule NEB SCH ×2 (12:15→21:46)
[2019-08-17] MEDS ORDERED: ipratropium 0.5 MG/2.5ML nebule IH PRN (12:20)
[2019-08-17] MEDS: nystatin 15 GM powder TP SCH ×2 (13:00→20:57)
[2019-08-17 18:30] VITALS: BP 131/73
--- NOTE | 2019-08-17 18:34 | NUR ---
Problems reprioritized. Patient report given, questions answered & plan of care reviewed with SELENE GREENFIELD.
[2019-08-17 20:00] VITALS: BP 138/72
[2019-08-17] MEDS: citalopram 20mg tablet PO SCH (20:51)
[2019-08-17] MEDS: oxybutynin 5mg tablet PO SCH (20:51)
[2019-08-17] MEDS: pantoprazole 40mg Tablet.DR PO SCH (20:51)
[2019-08-17] MEDS: amitriptyline 50mg tablet PO SCH (20:51)
[2019-08-17] MEDS: methylPREDNISolone sod succ/PF 40mg inj. IV SCH (20:51)
[2019-08-18] VITALS: BP 138/72
[2019-08-18] MEDS: ipratropium/albuterol 3ml nebule NEB SCH ×3 (02:40→20:58)
--- NOTE | 2019-08-18 06:10 | NUR ---
Problems reprioritized. Patient report given, questions answered & plan of care reviewed with ANGELIQUE. Addendum: 08/18/19 at 0611 by Manny Damian RN Amended: Links added.
[2019-08-18 06:32] LABS: ALBUMIN 2.9 G/DL (3.4-5.0); ANION GAP 6 (8-16); BLOOD UREA NITROGEN 21 MG/DL (7-18); BUN/CREATININE RATIO 27.6 (6.6-38.0); CALCIUM 8.8 MG/DL (8.5-10.1); CHLORIDE 107 MMOL/L (99-107); CREATININE 0.76 MG/DL (0.40-0.90); GLUCOSE 145 MG/DL (70-104); MAGNESIUM 2.2 MG/DL (1.5-2.4); POTASSIUM 4.3 MMOL/L (3.5-5.1); SODIUM 143 MMOL/L (135-145); TOTAL CARBON DIOXIDE 30.3 MMOL/L (24-32); eGFR 76 ML/MIN
--- NOTE | 2019-08-18 06:40 | NUR ---
Patient in room JAREN 357. I have received report from SELENE Buckley and had the opportunity to ask questions and assume patient care.
[2019-08-18 06:43] LABS: BASOPHILS % (AUTO) 0 % (0-1); EOSINOPHILS % (AUTO) 0 % (0-6); HEMOGLOBIN 12.5 g/dl (12.0-16.0); LYMPHOCYTES # (AUTO) 0.8 X10'3 (1.1-4.8); LYMPHOCYTES % (AUTO) 5.6 % (21-51); MEAN CORPUSCULAR HEMOGLOBIN 29.7 PG (27.0-31.0); MEAN CORPUSCULAR HGB CONC 32.9 g/dL (33.0-36.5); MEAN CORPUSCULAR VOLUME 90.2 FL (78-98); MEAN PLATELET VOLUME 9.3 FL (7.4-10.4); MONOCYTES # (AUTO) 0.5 X10'3 (0-0.9); MONOCYTES % (AUTO) 3.7 % (2-12); NEUTROPHILS # (AUTO) 12.4 X10'3 (1.8-7.7); NEUTROPHILS % (AUTO) 90.7 % (42-75); PLATELET COUNT 219 X10'3 (140-440); RED BLOOD COUNT 4.21 X10'6 (4.20-5.60); RED CELL DISTRIBUTION WIDTH 14.9 % (11.5-14.5); WHITE BLOOD COUNT 13.7 X10'3 (4.5-11.0)
--- NOTE | 2019-08-18 06:43 | NUR ---
Problems reprioritized. Patient report given, questions answered & plan of care reviewed with ANGELIQUE. Addendum: 08/18/19 at 0644 by Manny Damian RN Amended: Links added.
[2019-08-18] MEDS: K and/or MAG REPLACEMENT MC SCH (06:54)
[2019-08-18 07:00] VITALS: BP 119/59
[2019-08-18] MEDS: CefTRIAXone/D5W-Rocephin 1gm 50 ML IV SCH (07:24)
[2019-08-18] MEDS: pantoprazole 40mg Tablet.DR PO SCH ×2 (07:25→20:34)
[2019-08-18] MEDS: methylPREDNISolone sod succ/PF 40mg inj. IV SCH ×2 (07:25→20:34)
[2019-08-18] MEDS: nystatin 15 GM powder TP SCH ×3 (07:25→21:00)
[2019-08-18] MEDS ORDERED: non-formulary drug (Citalopram Hydrobromide (Citalopram HBr) 1 TAB) PO SCH (08:00)
[2019-08-18] MEDS: azithromycin/NS 500mg/250ml 250 ML IV SCH (08:19)
[2019-08-18 11:00] VITALS: BP 126/76
--- NOTE | 2019-08-18 18:03 | NUR ---
Problems reprioritized. Patient report given, questions answered & plan of care reviewed with SELENE Buckley.
--- NOTE | 2019-08-18 18:03 | NUR ---
Paged MD two times about the 24 hour tele order being up on this patient. Today the patient has been running SR although yesterday she had tachycardia of 135 with ambulation. Wanted to make sure the MD was aware before D/C'ing the tele. No response. fire range technician was stating that she is getting pressure from the nursing sup to have the tele taken off because of staffing issues. Tele was D/C'd without response from MD.
[2019-08-18 18:50] VITALS: BP 130/82
[2019-08-18] MEDS: oxybutynin 5mg tablet PO SCH (20:34)
[2019-08-18] MEDS: amitriptyline 50mg tablet PO SCH (20:34)
[2019-08-18] MEDS: lactobacillus rhamnosus 10,000 MMU CELLS/CAPSULE PO SCH (20:34)
[2019-08-18] MEDS: citalopram 20mg tablet PO SCH (20:34)
[2019-08-19] VITALS: BP 125/65
[2019-08-19] MEDS: ipratropium/albuterol 3ml nebule NEB SCH ×4 (02:46→21:51)
[2019-08-19 05:33] LABS: BASOPHILS % (AUTO) 0.1 % (0-1); EOSINOPHILS % (AUTO) 0 % (0-6); HEMATOCRIT 38.3 % (35.0-45.0); HEMOGLOBIN 12.3 g/dl (12.0-16.0); LYMPHOCYTES % (AUTO) 7.8 % (21-51); MEAN CORPUSCULAR HGB CONC 32.1 g/dL (33.0-36.5); MEAN CORPUSCULAR VOLUME 90.2 FL (78-98); MONOCYTES # (AUTO) 0.5 X10'3 (0-0.9); MONOCYTES % (AUTO) 4.1 % (2-12); NEUTROPHILS # (AUTO) 11.6 X10'3 (1.8-7.7); PLATELET COUNT 243 X10'3 (140-440); RED BLOOD COUNT 4.24 X10'6 (4.20-5.60); RED CELL DISTRIBUTION WIDTH 14.8 % (11.5-14.5); WHITE BLOOD COUNT 13.2 X10'3 (4.5-11.0)
[2019-08-19 05:48] LABS: ALBUMIN 2.9 G/DL (3.4-5.0); ANION GAP 3 (8-16); BLOOD UREA NITROGEN 27 MG/DL (7-18); BUN/CREATININE RATIO 30.3 (6.6-38.0); CALCIUM 8.9 MG/DL (8.5-10.1); CHLORIDE 106 MMOL/L (99-107); CREATININE 0.89 MG/DL (0.40-0.90); GLUCOSE 137 MG/DL (70-104); MAGNESIUM 2.1 MG/DL (1.5-2.4); POTASSIUM 4.4 MMOL/L (3.5-5.1); SODIUM 141 MMOL/L (135-145); TOTAL CARBON DIOXIDE 32.3 MMOL/L (24-32); eGFR 63 ML/MIN
--- NOTE | 2019-08-19 06:20 | NUR ---
Patient in room JAREN 357. I have received report from SELENE Buckley and had the opportunity to ask questions and assume patient care.
--- NOTE | 2019-08-19 06:48 | NUR ---
Problems reprioritized. Patient report given, questions answered & plan of care reviewed with ANGEILQUE. Addendum: 08/19/19 at 0648 by Manny Damian RN Amended: Links added.
[2019-08-19 07:00] VITALS: BP 133/82
[2019-08-19] MEDS: K and/or MAG REPLACEMENT MC SCH (07:08)
[2019-08-19] MEDS: methylPREDNISolone sod succ/PF 40mg inj. IV SCH ×2 (08:08→19:45)
[2019-08-19] MEDS: CefTRIAXone/D5W-Rocephin 1gm 50 ML IV SCH (08:08)
[2019-08-19] MEDS: pantoprazole 40mg Tablet.DR PO SCH ×2 (08:08→19:45)
[2019-08-19] MEDS: lactobacillus rhamnosus 10,000 MMU CELLS/CAPSULE PO SCH ×2 (08:08→19:45)
[2019-08-19] MEDS: nystatin 15 GM powder TP SCH ×3 (08:09→19:53)
[2019-08-19] MEDS: azithromycin/NS 500mg/250ml 250 ML IV SCH (09:25)
[2019-08-19 11:00] VITALS: BP 142/85
--- NOTE | 2019-08-19 16:21 | NUR ---
Patient complaining of pain in hip. She states taking Tylenol at home for this pain. MD paged twice with no response.
[2019-08-19] MEDS ORDERED: acetaminophen 325mg tablet PO PRN (16:40)
--- NOTE | 2019-08-19 18:02 | NUR ---
Problems reprioritized. Patient report given, questions answered & plan of care reviewed with SELENE Haile.
--- NOTE | 2019-08-19 18:04 | NUR ---
Patient in room JAR[facility] 357. I have received report from SELENE Duran and had the opportunity to ask questions and assume patient care. Pt sitting up in bed eating dinner. No complaints, states tylenol helped with hip pain. Discussed plan of care for night, pt verbalizes understanding. Addendum: 08/19/19 at 1805 by May Vázquez RN Amended: Links added.
[2019-08-19 19:00] VITALS: BP 127/78
[2019-08-19] MEDS: amitriptyline 50mg tablet PO SCH (19:53)
[2019-08-19] MEDS: citalopram 20mg tablet PO SCH (19:54)
[2019-08-19] MEDS: oxybutynin 5mg tablet PO SCH (19:54)
[2019-08-19 23:30] VITALS: BP 130/68
[2019-08-20] MEDS: ipratropium/albuterol 3ml nebule NEB SCH ×2 (03:14→09:47)
[2019-08-20 04:58] LABS: BASOPHILS % (AUTO) 0.2 % (0-1); EOSINOPHILS % (AUTO) 0 % (0-6); HEMATOCRIT 39.2 % (35.0-45.0); HEMOGLOBIN 12.8 g/dl (12.0-16.0); LYMPHOCYTES # (AUTO) 1.3 X10'3 (1.1-4.8); LYMPHOCYTES % (AUTO) 12.8 % (21-51); MEAN CORPUSCULAR HEMOGLOBIN 29.4 PG (27.0-31.0); MEAN CORPUSCULAR HGB CONC 32.6 g/dL (33.0-36.5); MEAN CORPUSCULAR VOLUME 90.1 FL (78-98); MEAN PLATELET VOLUME 9.4 FL (7.4-10.4); MONOCYTES # (AUTO) 0.7 X10'3 (0-0.9); MONOCYTES % (AUTO) 6.5 % (2-12); NEUTROPHILS # (AUTO) 8.4 X10'3 (1.8-7.7); NEUTROPHILS % (AUTO) 80.5 % (42-75); PLATELET COUNT 236 X10'3 (140-440); RED BLOOD COUNT 4.35 X10'6 (4.20-5.60); RED CELL DISTRIBUTION WIDTH 14.7 % (11.5-14.5); WHITE BLOOD COUNT 10.5 X10'3 (4.5-11.0)
[2019-08-20 05:16] LABS: ALBUMIN 2.9 G/DL (3.4-5.0); ANION GAP 6 (8-16); BLOOD UREA NITROGEN 26 MG/DL (7-18); BUN/CREATININE RATIO 30.6 (6.6-38.0); CHLORIDE 105 MMOL/L (99-107); CREATININE 0.85 MG/DL (0.40-0.90); GLUCOSE 130 MG/DL (70-104); MAGNESIUM 2.1 MG/DL (1.5-2.4); POTASSIUM 4.4 MMOL/L (3.5-5.1); SODIUM 140 MMOL/L (135-145); eGFR 67 ML/MIN
--- NOTE | 2019-08-20 06:24 | NUR ---
Problems reprioritized. Patient report given, questions answered & plan of care reviewed with SELENE DASH. Addendum: 08/20/19 at 0624 by May Vázquez RN Amended: Links added.
--- NOTE | 2019-08-20 06:30 | NUR ---
Patient in room JAREN 357. I have received report from SELENE Haile and had the opportunity to ask questions and assume patient care.
[2019-08-20 07:00] VITALS: BP 144/90
[2019-08-20] MEDS: CefTRIAXone/D5W-Rocephin 1gm 50 ML IV SCH (07:53)
[2019-08-20] MEDS: K and/or MAG REPLACEMENT MC SCH (08:00)
[2019-08-20] MEDS: nystatin 15 GM powder TP SCH ×2 (08:20→13:00)
[2019-08-20] MEDS: azithromycin/NS 500mg/250ml 250 ML IV SCH (08:20)
[2019-08-20] MEDS: methylPREDNISolone sod succ/PF 40mg inj. IV SCH (08:21)
[2019-08-20] MEDS: lactobacillus rhamnosus 10,000 MMU CELLS/CAPSULE PO SCH (08:21)
[2019-08-20] MEDS: pantoprazole 40mg Tablet.DR PO SCH (08:21)
[2019-08-20 11:00] VITALS: BP 133/78
[2019-08-20] MEDS ORDERED: LEVO500T2 PO (11:24)
[2019-08-20] MEDS ORDERED: PRED10TA23 PO (11:24)
[2019-08-20] MEDS ORDERED: AMOX-580 PO (13:56)
--- NOTE | 2019-08-20 15:25 | NUR ---
Pt discharged to home at 1450, with all belongings. Discharge instructions and medications reviewed. New prescriptions e-scripted to [facility]. Pt instructed to follow up with PCP in 1-2 weeks and to return to ED if symptoms return. IV DC'd, cannula intact. Pt escorted to front lobby via wheelchair by PCT.
[2019-09-07] MEDS ORDERED: FLU VACC QS2019-20 36MOS UP/PF 60 MCG/0.5 ML SYRINGE IMVAC ONE (10:00)
== END 2019-08-20 14:52 | disposition home or self-care (01) | DRG 202 ==
LOC: ER 01:51 → ED HOLD 05:52 → SUR 3N 09:15
PROVIDERS: ADMIT Internal Medicine; ATTEND Family Medicine
DX: J20.9 Acute bronchitis, unspecified (principal); J44.1 Chronic obstructive pulmonary disease with (acute) exacerbation; J96.10 Chronic respiratory failure, unspecified whether with hypoxia or hypercapnia; J44.0 Chronic obstructive pulmonary disease with (acute) lower respiratory infection; I10 Essential (primary) hypertension; F17.210 Nicotine dependence, cigarettes, uncomplicated; F32.9 Major depressive disorder, single episode, unspecified; F41.9 Anxiety disorder, unspecified; G89.29 Other chronic pain; K21.9 Gastro-esophageal reflux disease without esophagitis; M54.9 Dorsalgia, unspecified; Z87.442 Personal history of urinary calculi; Z88.1 Allergy status to other antibiotic agents; Z88.8 Allergy status to other drugs, medicaments and biological substances; Z90.49 Acquired absence of other specified parts of digestive tract; Z98.51 Tubal ligation status; Z79.899 Other long term (current) drug therapy
CPT/HCPCS: 36415; 36600; 71045; 80048; 80053; 82803; 83735; 83880; 84145; 84484; 85018; 85025; 85610; 87081; 87502; 87503; 93005; 94640; 94760; 96365; 96367; 96375; 97110; 97116; 97161; 99291; G0378; J0456; J0696; J2920; J2930; J3475; Q2037

== ENCOUNTER 2020-07-26 17:42 | Emergency (ER) | payer MEDICARE, MEDICAID ==
[~2020-07-26] VITALS: Ht 170.2 cm; Wt 185.0 kg
[~2020-07-26 17:42] MED LIST changes: +AZI25OT PO; +BUDE10.22 INH; +LACT1CAP55 PO; -OMEP20CA11 PO; +OMEP20CA15 PO; +OXYB-58 PO; -OXYB5TAB4 PO; -PRED20TA PO; +TAM75C PO; +TIOT4MIS2 INH
[2020-07-26] MEDS ORDERED: normal saline 1000ML IV soln IV ONE (18:00)
[2020-07-26] MEDS ORDERED: ipratropium/albuterol 3ml nebule NEB ONE (18:00)
[2020-07-26] MEDS ORDERED: methylPREDNISolone sod succ 125mg/2ml vial IV ONE (18:00)
[2020-07-26 18:29] LABS: BASOPHILS # (AUTO) 0.1 X10'3 (0-0.2); BASOPHILS % (AUTO) 0.7 % (0-1); EOSINOPHILS # (AUTO) 0.2 X10'3 (0-0.9); EOSINOPHILS % (AUTO) 2.4 % (0-6); HEMATOCRIT 38.3 % (35.0-45.0); HEMOGLOBIN 11.9 g/dl (12.0-16.0); LYMPHOCYTES # (AUTO) 1.5 X10'3 (1.1-4.8); LYMPHOCYTES % (AUTO) 17.5 % (21-51); MEAN CORPUSCULAR HEMOGLOBIN 25.5 PG (27.0-31.0); MEAN CORPUSCULAR HGB CONC 31.1 g/dL (33.0-36.5); MEAN CORPUSCULAR VOLUME 81.9 FL (78-98); MONOCYTES # (AUTO) 0.8 X10'3 (0-0.9); MONOCYTES % (AUTO) 9.1 % (2-12); NEUTROPHILS # (AUTO) 6.2 X10'3 (1.8-7.7); NEUTROPHILS % (AUTO) 70.3 % (42-75); PLATELET COUNT 273 X10'3 (140-440); RED BLOOD COUNT 4.68 X10'6 (4.20-5.60); WHITE BLOOD COUNT 8.8 X10'3 (4.5-11.0)
[2020-07-26 18:50] LABS: ALANINE AMINOTRANSFERASE 16 U/L (12-78); ALBUMIN 3.1 G/DL (3.4-5.0); ALBUMIN/GLOBULIN RATIO 0.8 (1.1-1.5); ALKALINE PHOSPHATASE 63 IU/L (46-116); ANION GAP 6 (8-16); ASPARTATE AMINO TRANSFERASE 15 U/L (10-37); BILIRUBIN,TOTAL 0.2 MG/DL (0.1-1.0); BLOOD UREA NITROGEN 12 MG/DL (7-18); BUN/CREATININE RATIO 14.8 (6.6-38.0); CALCIUM 8.8 MG/DL (8.5-10.1); CHLORIDE 107 MMOL/L (99-107); CREATININE 0.81 MG/DL (0.40-0.90); GLUCOSE 85 MG/DL (70-104); POTASSIUM 3.9 MMOL/L (3.5-5.1); SODIUM 145 MMOL/L (135-145); eGFR 70 ML/MIN
[2020-07-26 18:51] LABS: ABG BASE EXCESS 1.8 mmol/L (-2.0-2.0); ABG HCO3 27.5 mmol/L (22.0-26.0); ABG OXYGEN SATURATION 97.9 % (94-97); ABG PCO2 (T) 46.8 mmHg (32.0-45.0); ABG PO2 (T) 111.4 mmHg (75.0-100.0); ALLEN'S TEST POSITIVE; FCOHb 0.2 % (0.0-3.9); FMetHb 0.1 % (0.0-1.5); FO2Hb 97.6 % (94-97); PATIENT TEMPERATURE 36.8; TOTAL HEMOGLOBIN 12.7 G/dl (12.0-16.0)
[2020-07-26 18:57] LABS: MAGNESIUM 1.9 MG/DL (1.5-2.4)
[2020-07-26] MEDS ORDERED: morphine 4 MG/ML inj SYRINge IV PRN (19:10)
[2020-07-26] MEDS ORDERED: ondansetron/PF 4mg/2ml inj IV ONE (19:10)
--- NOTE | 2020-07-26 19:58 | NUR ---
PT TO CT
[2020-07-26 20:43] LABS: COLOR,URINE YELLOW (Yellow); GLUCOSE, URINE NEGATIVE (Neg); KETONES,URINE NEGATIVE (Neg); LEUKOCYTE ESTERASE ,URINE NEGATIVE (Neg); NITRITES, URINE NEGATIVE (Neg); OCCULT BLOOD,URINE LARGE (Neg); PROTEIN,URINE NEGATIVE (Neg); UROBILINOGEN,URINE 0.2 E.U/dL (0.2-1.0)
[2020-07-26] MEDS ORDERED: HYDROcodone/acetaminophen 10/325mg tab PO ONE (20:45)
[2020-07-26] MEDS ORDERED: morphine 4 MG/ML inj SYRINge IV ONE (20:45)
[2020-07-26 20:59] LABS: CLARITY,URINE SLIGHTLY CLOUDY (Clear); UA COLLECTION TYPE CLN CATCH MIDSTREAM
[2020-07-26 21:00] LABS: RBC,URINE 50-100 /HPF (0-2); WBC,URINE 0-4 /HPF (0-4)
[2020-07-26 21:01] LABS: BACTERIA,URINE NONE SEEN /HPF (Neg); MUCUS STRANDS FEW /LPF (Neg); SQUAMOUS EPITHELIAL CELL,UR FEW /LPF (FEW)
[2020-07-26] MEDS ORDERED: ONDA4TAB6 PO (22:46)
[2020-07-26] MEDS ORDERED: OXYC-150 PO (22:46)
[2020-07-26 22:59] VITALS: BP 170/85
== END 2020-07-26 22:50 | disposition home or self-care (01) ==
LOC: ER 17:43
DX: N20.1 Calculus of ureter (principal); Z20.828 Contact with and (suspected) exposure to other viral communicable diseases; J44.9 Chronic obstructive pulmonary disease, unspecified; I10 Essential (primary) hypertension; K21.9 Gastro-esophageal reflux disease without esophagitis; G89.29 Other chronic pain; Z90.49 Acquired absence of other specified parts of digestive tract; Z98.890 Other specified postprocedural states; Z98.51 Tubal ligation status; Z79.899 Other long term (current) drug therapy; Z88.1 Allergy status to other antibiotic agents; Z88.6 Allergy status to analgesic agent; Z79.2 Long term (current) use of antibiotics
CPT/HCPCS: 36415; 36600; 71045; 74176; 80053; 81001; 82803; 83605; 83735; 83880; 84145; 84484; 85018; 85025; 87040; 87635; 93005; 94640; 96374; 96375; 96376; 99285; C9803; J2270; J2405; J2930; J7030; 94760

== ENCOUNTER 2020-10-08 15:50 | Emergency (ER) | payer BC, MEDICAID ==
[~2020-10-08] VITALS: Ht 170.2 cm; Wt 85.7 kg
[~2020-10-08 15:50] MED LIST changes: +ONDA4TAB6 PO; +OXYC-150 PO
[2020-10-08] MEDS ORDERED: PRED10TA23 PO (16:22)
[2020-10-08] MEDS ORDERED: AMLO5TAB PO (16:22)
[2020-10-08] MEDS ORDERED: methylPREDNISolone sod succ 125mg/2ml vial IV ONE (16:25)
[2020-10-08] MEDS ORDERED: famotidine/PF 10 mg/ml inj IV ONE (16:25)
[2020-10-08 18:25] VITALS: BP 124/91
== END 2020-10-08 18:32 | disposition home or self-care (01) ==
LOC: ER 15:51
DX: T78.3XXA Angioneurotic edema, initial encounter (principal); R06.2 Wheezing; I10 Essential (primary) hypertension; J44.9 Chronic obstructive pulmonary disease, unspecified; K21.9 Gastro-esophageal reflux disease without esophagitis; G89.29 Other chronic pain; F41.9 Anxiety disorder, unspecified; F32.9 Major depressive disorder, single episode, unspecified; Z87.442 Personal history of urinary calculi; Z90.49 Acquired absence of other specified parts of digestive tract; Z98.51 Tubal ligation status; Z98.890 Other specified postprocedural states; Z88.1 Allergy status to other antibiotic agents; Z88.6 Allergy status to analgesic agent; Z88.8 Allergy status to other drugs, medicaments and biological substances; Z79.2 Long term (current) use of antibiotics; Z79.899 Other long term (current) drug therapy
CPT/HCPCS: 96374; 96375; 99284; J2930; J3490